=== PATIENT | male | born 1985 | race Caucasian/White ===

== ENCOUNTER 2016-08-29 06:44 | Emergency (ER) | payer BC ==
[~2016-08-29] VITALS: Ht 165.1 cm; Wt 61.0 kg
[2016-08-29 06:55] VITALS: BP 157/85
[2016-08-29] MEDS ORDERED: BACITRACIN ZINC OINT UDPKT TOP ONE (07:30)
== END 2016-08-29 07:47 | disposition home or self-care (01) ==
LOC: ER 06:57
DX: S60.312A Abrasion of left thumb, initial encounter (principal); W26.9XXA Contact with unspecified sharp object(s), initial encounter; Y93.89 Activity, other specified; Y99.9 Unspecified external cause status; Y92.89 Other specified places as the place of occurrence of the external cause
CPT/HCPCS: 99282

== ENCOUNTER 2017-12-10 10:32 | Inpatient (IN) | payer BC, MEDICAID ==
[~2017-12-10] VITALS: Ht 165.1 cm; Wt 61.7 kg
[2017-12-10 11:08] LABS: CLARITY URINE CLEAR (CLEAR); COLOR URINE DARK YELLOW (YELLOW); KETONES URINE 4+ (NEGATIVE); LEUKOCYTE ESTERASE URINE NEGATIVE (NEGATIVE); NITRITE URINE NEGATIVE (NEGATIVE); OCCULT BLOOD URINE TRACE (NEGATIVE); PROTEIN URINE 1+ (NEGATIVE); SPECIFIC GRAVITY URINE 1.038 (1.005-1.030)
[2017-12-10 11:12] LABS: BASOPHILS % 1.1 % (0.0-2.0); HEMATOCRIT. 43.3 % (42.0-52.0); LYMPHOCYTES % 18.6 % (20.0-50.0); MEAN CORPUSCULAR VOLUME 86.6 fL (80.0-94.0); NEUTROPHILS % 66.3 % (40.0-76.0); PLATELET 219 x1000/uL (130-400)
[2017-12-10 11:17] LABS: CHLORIDE 101 mEq/L (98-107)
[2017-12-10 11:18] LABS: INR 1.1; PROTHROMBIN TIME 11.7 sec (9.4-11.6)
[2017-12-10] MEDS ORDERED: IOHEXOL-300 100 ML BOTTLE ONE (12:24)
[2017-12-10 17:00] VITALS: BP 118/70
[2017-12-10 17:45] VITALS: BP 118/70
[2017-12-10] MEDS: IBUPROFEN 400MG TABLET PO PRN (19:46)
[2017-12-10] MEDS: PANTOPRAZOLE 40MG DR TABLET PO SCH (19:47)
[2017-12-10 20:00] VITALS: BP 117/59
[2017-12-10] MEDS ORDERED: DIPHENHYDRAMINE 50MG/ML VIAL IV PRN (22:00)
[2017-12-10] MEDS ORDERED: LORAZEPAM 2MG/ML CPJ IV PRN (22:00)
[2017-12-10] MEDS ORDERED: CLONIDINE 0.1MG TABLET PO PRN (22:00)
[2017-12-10] MEDS ORDERED: ONDANSETRON HCL 4MG/2ML VIAL IV PRN (22:00)
[2017-12-10] MEDS: DEXT 5%/0.45% NACL 1000ML 1,000 ML IV SCH (23:06)
[2017-12-10] MEDS: ENOXAPARIN 40MG/0.4ML SYR SUBCUT SCH (23:08)
[2017-12-11] VITALS: BP 104/57
[2017-12-11] MEDS ORDERED: POTASSIUM CHLORIDE 20MEQ TABLET SR PO SCH
[2017-12-11] MEDS: VANCOMYCIN 1500MG in DEXTROSE 5% WATER 250ML IV SCH ×3 (02:11→18:07)
[2017-12-11 02:45] LABS: *BARBITURATES SCREEN URINE NEGATIVE (NEGATIVE); *BENZODIAZEPINES SCREEN URINE NEGATIVE (NEGATIVE); *COCAINE SCREEN URINE NEGATIVE (NEGATIVE)
[2017-12-11 02:46] LABS: CANNABINOID URINE SCREEN PRESUMTIVE POSITIVE (NEGATIVE); METHADONE URINE SCREEN NEGATIVE (NEGATIVE); OPIATES URINE SCREEN NEGATIVE (NEGATIVE); PHENCYCLIDINE URINE SCREEN NEGATIVE (NEGATIVE)
[2017-12-11 02:53] LABS: *AMPHETAMINES SCREEN URINE NEGATIVE (NEGATIVE)
[2017-12-11 04:00] VITALS: BP 119/64
[2017-12-11] MEDS: IBUPROFEN 400MG TABLET PO PRN ×2 (05:01→22:46)
[2017-12-11] MEDS: ACETAMINOPHEN 325MG TABLET PO PRN ×2 (06:22→10:15)
[2017-12-11] MEDS: PANTOPRAZOLE 40MG DR TABLET PO SCH (06:42)
[2017-12-11 08:00] VITALS: BP 127/63
[2017-12-11 11:36] VITALS: BP 108/63
[2017-12-11 15:44] VITALS: BP 105/55
[2017-12-11 16:48] LABS: CREATINE KINASE 110 IU/L (39-308)
[2017-12-11 17:07] LABS: HEPATITIS B SURFACE ANTIGEN NEGATIVE
[2017-12-11 17:36] LABS: HEPATITIS B CORE AB IGM NEGATIVE
[2017-12-11 17:37] LABS: HEPATITIS A AB IGM NEGATIVE (NEGATIVE)
[2017-12-11] MEDS: DEXT 5%/0.45% NACL 1000ML 1,000 ML IV SCH (18:07)
[2017-12-11 20:00] VITALS: BP 116/63
[2017-12-11] MEDS: ENOXAPARIN 40MG/0.4ML SYR SUBCUT SCH (20:44)
[2017-12-12] VITALS: BP 117/69
[2017-12-12] MEDS: ACETAMINOPHEN 325MG TABLET PO PRN ×2 (00:44→21:20)
[2017-12-12] MEDS: VANCOMYCIN 1500MG in DEXTROSE 5% WATER 250ML IV SCH ×2 (01:00→10:47)
[2017-12-12 04:00] VITALS: BP 117/65
[2017-12-12] MEDS: PANTOPRAZOLE 40MG DR TABLET PO SCH (06:24)
[2017-12-12 07:59] VITALS: BP 109/53
[2017-12-12 08:40] LABS: HEMATOCRIT. 42.6 % (42.0-52.0); HEMOGLOBIN. 14.5 g/dL (14.0-18.0); MEAN CORPUSCULAR HEMOGLOBIN 29.8 pg (28.0-32.0); MEAN CORPUSCULAR VOLUME 87.6 fL (80.0-94.0); MEAN PLATELET VOLUME 8.7 fl (7.4-10.4); PLATELET 230 x1000/uL (130-400); RED BLOOD CELL COUNT 4.87 mill/uL (4.7-6.1); RED CELL DISTRIBUTION WIDTH 13.3 % (11.6-14.6)
[2017-12-12 08:47] LABS: CHLORIDE 104 mEq/L (98-107)
[2017-12-12 09:17] LABS: PHOSPHORUS 2.7 mg/dL (2.5-4.9)
[2017-12-12] MEDS: AZITHROMYCIN 500 MG in DEXT 5% WATER 250 ML IV SCH (09:40)
[2017-12-12 10:58] LABS: PLATELET ESTIMATE NORMAL
[2017-12-12 11:53] VITALS: BP 118/70
[2017-12-12] MEDS: CEFTRIAXONE 1 G PREMIX 50 ML IV SCH (12:57)
[2017-12-12] MEDS: POTASSIUM CHLORIDE 20MEQ TABLET SR PO SCH (14:58)
[2017-12-12] MEDS: DEXT 5%/0.45% NACL 1000ML 1,000 ML IV SCH (14:59)
[2017-12-12 16:00] VITALS: BP 116/59
[2017-12-12] MEDS: IBUPROFEN 400MG TABLET PO PRN (16:32)
[2017-12-12] MEDS: VANCOMYCIN 1250MG in DEXTROSE 5% WATER 250ML IV SCH ×2 (18:26→23:41)
[2017-12-12 20:00] VITALS: BP 110/60
[2017-12-12] MEDS: ENOXAPARIN 40MG/0.4ML SYR SUBCUT SCH (21:20)
[2017-12-13] VITALS: BP 105/58
[2017-12-13 04:00] VITALS: BP 108/60
[2017-12-13] MEDS: VANCOMYCIN 1250MG in DEXTROSE 5% WATER 250ML IV SCH ×3 (05:01→17:36)
[2017-12-13] MEDS: PANTOPRAZOLE 40MG DR TABLET PO SCH (06:35)
[2017-12-13 08:00] VITALS: BP 113/60
[2017-12-13 08:31] LABS: BASOPHILS % 0.9 % (0.0-2.0); EOSINOPHILS % 1.9 % (0.0-5.0); HEMOGLOBIN. 13.6 g/dL (14.0-18.0); MEAN CORPUSCULAR HEMOGLOBIN 29.4 pg (28.0-32.0); MEAN CORPUSCULAR VOLUME 86.6 fL (80.0-94.0); MEAN PLATELET VOLUME 8.6 fl (7.4-10.4); MONOCYTES % 11.9 % (2.0-8.0); NEUTROPHILS % 50.3 % (40.0-76.0); PLATELET 255 x1000/uL (130-400); RED BLOOD CELL COUNT 4.62 mill/uL (4.7-6.1); RED CELL DISTRIBUTION WIDTH 13.1 % (11.6-14.6)
[2017-12-13] MEDS: AZITHROMYCIN 500 MG in DEXT 5% WATER 250 ML IV SCH (08:42)
[2017-12-13] MEDS: POTASSIUM CHLORIDE 20MEQ TABLET SR PO SCH (08:42)
[2017-12-13 09:17] LABS: CHLORIDE 107 mEq/L (98-107)
[2017-12-13 09:25] LABS: PHOSPHORUS 2.1 mg/dL (2.5-4.9)
[2017-12-13] MEDS: ONDANSETRON HCL 4MG/2ML VIAL IV PRN (10:17)
[2017-12-13] MEDS: CEFTRIAXONE 1 G PREMIX 50 ML IV SCH (10:45)
[2017-12-13 12:00] VITALS: BP 118/60
[2017-12-13] MEDS ORDERED: IPRATROPIUM/ALBUTEROL 0.5-3(2.5)MG/3ML NEB HHN PRN (16:15)
[2017-12-13 16:18] VITALS: BP 120/59
[2017-12-13] MEDS: DEXT 5%/0.45% NACL 1000ML 1,000 ML IV SCH (18:06)
[2017-12-13 20:00] VITALS: BP 110/60
[2017-12-13] MEDS: ENOXAPARIN 40MG/0.4ML SYR SUBCUT SCH (20:38)
[2017-12-14] VITALS: BP 102/55
[2017-12-14] MEDS: DEXT 5%/0.45% NACL 1000ML 1,000 ML IV SCH (00:57)
[2017-12-14] MEDS: VANCOMYCIN 1250MG in DEXTROSE 5% WATER 250ML IV SCH ×5 (00:57→23:44)
[2017-12-14 04:00] VITALS: BP 100/55
[2017-12-14] MEDS: PANTOPRAZOLE 40MG DR TABLET PO SCH (05:51)
[2017-12-14 08:00] VITALS: BP 124/63
[2017-12-14] MEDS: POTASSIUM CHLORIDE 20MEQ TABLET SR PO SCH (08:06)
[2017-12-14] MEDS: AZITHROMYCIN 500 MG in DEXT 5% WATER 250 ML IV SCH (08:37)
[2017-12-14] MEDS: ONDANSETRON HCL 4MG/2ML VIAL IV PRN (09:22)
[2017-12-14] MEDS: CEFTRIAXONE 1 G PREMIX 50 ML IV SCH (10:02)
[2017-12-14 10:12] LABS: HIV SCREEN 4G Non Reactive (Non Reactive)
[2017-12-14 12:00] VITALS: BP 114/63
[2017-12-14 16:00] VITALS: BP 120/66
[2017-12-14] MEDS: IPRATROPIUM/ALBUTEROL 0.5-3(2.5)MG/3ML NEB HHN SCH ×2 (16:48→21:11)
[2017-12-14 20:00] VITALS: BP 114/69
[2017-12-14] MEDS: ENOXAPARIN 40MG/0.4ML SYR SUBCUT SCH (20:15)
[2017-12-15] VITALS: BP 107/48
[2017-12-15] MEDS: ACETYLCYSTEINE 100MG/ML 10% VIAL 4ML INH SCH ×2 (02:40→08:50)
[2017-12-15 04:00] VITALS: BP 112/54
[2017-12-15] MEDS: PANTOPRAZOLE 40MG DR TABLET PO SCH (06:22)
[2017-12-15] MEDS: VANCOMYCIN 1250MG in DEXTROSE 5% WATER 250ML IV SCH (06:22)
[2017-12-15 08:00] VITALS: BP 116/67
[2017-12-15] MEDS: ONDANSETRON HCL 4MG/2ML VIAL IV PRN (09:02)
[2017-12-15] MEDS: POTASSIUM CHLORIDE 20MEQ TABLET SR PO SCH (09:03)
[2017-12-15] MEDS: ACETAMINOPHEN 325MG TABLET PO PRN (09:04)
[2017-12-15] MEDS: IPRATROPIUM/ALBUTEROL 0.5-3(2.5)MG/3ML NEB HHN SCH (09:27)
[2017-12-15] MEDS: AZITHROMYCIN 500 MG in DEXT 5% WATER 250 ML IV SCH (09:41)
[2017-12-15] MEDS: CEFTRIAXONE 1 G PREMIX 50 ML IV SCH (13:16)
[2017-12-15 17:42] VITALS: BP 119/56
[2017-12-15] MEDS ORDERED: VANCOMYCIN 1 G PREMIX 200 ML IV SCH (21:00)
[2017-12-16] MEDS ORDERED: AZITHROMYCIN 500 MG TABLET PO SCH (09:00)
== END 2017-12-15 18:12 | disposition home or self-care (01) | DRG 871 ==
LOC: ER 10:32 → 6EST 12:17 → ENRESERV 14:34 → 6EST 12-15 08:55
PROVIDERS: ADMIT Internal Medicine Nephrology; ATTEND Internal Medicine Nephrology
DX: A41.9 Sepsis, unspecified organism (principal); J96.00 Acute respiratory failure, unspecified whether with hypoxia or hypercapnia; J18.1 Lobar pneumonia, unspecified organism; D72.821 Monocytosis (symptomatic); E83.39 Other disorders of phosphorus metabolism; E87.5 Hyperkalemia; E87.6 Hypokalemia; G43.909 Migraine, unspecified, not intractable, without status migrainosus; R74.0 Nonspecific elevation of levels of transaminase and lactic acid dehydrogenase [LDH]; K75.9 Inflammatory liver disease, unspecified; Z82.49 Family history of ischemic heart disease and other diseases of the circulatory system; Z79.899 Other long term (current) drug therapy
CPT/HCPCS: 36415; 71046; 71260; 74018; 74176; 80048; 80053; 80076; 80202; 80305; 81003; 82550; 83615; 83690; 83735; 84100; 84145; 85025; 85379; 85610; 85730; 86705; 86709; 86738; 86803; 87186; 87340; 96374; 99285; C1893; J0456; J0696; J1650; J2405; J3370; J3490; J7060; J7608; J7620; Q9967

== ENCOUNTER → 2018-01-05 | Outpatient (CLI) | payer BC, MEDICAID ==
[~2018-01-05] MED LIST: IOHEXOL-300 100 ML BOTTLE ONE
== END | disposition home or self-care (01) ==
LOC: CT 07:35
PROVIDERS: ATTEND Internal Medicine Nephrology
DX: J98.4 Other disorders of lung (principal)
CPT/HCPCS: 71270; Q9967

== ENCOUNTER → 2019-01-16 | Outpatient (CLI) | payer BC, MEDICAID ==
[2019-01-16 10:59] LABS: BASOPHILS % 1.4 % (0.0-2.0); EOSINOPHILS % 1.4 % (0.0-5.0); HEMATOCRIT. 47.8 % (42.0-52.0); LYMPHOCYTES % 44.2 % (20.0-50.0); MEAN CORPUSCULAR HEMOGLOBIN 30.2 pg (28.0-32.0); MEAN CORPUSCULAR VOLUME 90.4 fL (80.0-94.0); MONOCYTES % 6.1 % (2.0-8.0); NEUTROPHILS % 46.9 % (40.0-76.0); PLATELET 261 x1000/uL (130-400); RED BLOOD CELL COUNT 5.29 mill/uL (4.7-6.1); RED CELL DISTRIBUTION WIDTH 13.2 % (11.6-14.6)
[2019-01-16 11:04] LABS: CHLORIDE 107 mEq/L (98-107)
[2019-01-16 11:11] LABS: LDL CHOLESTEROL 121 mg/dL (5-100)
[2019-01-16 11:12] LABS: C REACTIVE PROTEIN QUANT 0.2 mg/L (0.0-3.0); HDL CHOLESTEROL 56 mg/dL (40-59)
[2019-01-16 11:13] LABS: TOTAL IRON BINDING CAPACITY 334 ug/dL (250-450)
[2019-01-16 11:16] LABS: T4 FREE 0.97 ng/dL (0.76-1.46)
[2019-01-17 10:11] LABS: VITAMIN D 25-OH 15.1 ng/mL (30.0-100.0)
== END | disposition home or self-care (01) ==
LOC: LAB 10:33
DX: Z00.01 Encounter for general adult medical examination with abnormal findings (principal)
CPT/HCPCS: 36415; 80061; 82306; 83036; 83540; 83550; 83735; 84403; 84439; 84443; 84550; 86140

== ENCOUNTER 2022-06-30 09:38 | Emergency (ER) | payer BC, OTHER ==
[~2022-06-30] VITALS: Ht 165.1 cm; Wt 75.0 kg
[2022-06-30] MEDS ORDERED: METOCLOPRAMIDE HCL 10MG/2ML VIAL IV ONE (10:15)
[2022-06-30] MEDS ORDERED: DIPHENHYDRAMINE 50MG/ML VIAL IV ONE (10:15)
[2022-06-30] MEDS ORDERED: SODIUM CHLORIDE 0.9% 1,000 ML IV ONE (10:15)
[2022-06-30 10:19] LABS: BASOPHILS % 1.2 % (0.0-2.0); EOSINOPHILS % 2.8 % (0.0-5.0); HEMATOCRIT. 47.5 % (42.0-52.0); LYMPHOCYTES % 41.2 % (20.0-50.0); MEAN CORPUSCULAR HEMOGLOBIN 29.8 pg (28.0-32.0); MEAN CORPUSCULAR VOLUME 88.6 fL (80.0-94.0); MEAN PLATELET VOLUME 8.3 fl (7.4-10.4); MONOCYTES % 6.6 % (2.0-8.0); NEUTROPHILS % 48.2 % (40.0-76.0); PLATELET 274 x1000/uL (130-400); RED BLOOD CELL COUNT 5.37 mill/uL (4.7-6.1); RED CELL DISTRIBUTION WIDTH 13.3 % (11.6-14.6)
[2022-06-30 10:25] LABS: CHLORIDE 104 mEq/L (98-107)
[2022-06-30] MEDS ORDERED: POTASSIUM CHLORIDE 20MEQ TABLET SR PO ONE (11:15)
[2022-06-30 12:59] VITALS: BP 143/80
== END 2022-06-30 13:02 | disposition home or self-care (01) ==
LOC: ER 10:12
DX: R51.9 Headache, unspecified (principal); M54.2 Cervicalgia; E87.6 Hypokalemia
CPT/HCPCS: 36415; 70450; 80053; 85025; 93005; 96361; 96374; 96375; 99285; J1200; J2765; J7030; Z7610